=== PATIENT | male | born 1945 ===

== ENCOUNTER 2017-05-09 16:46 | Inpatient (IN) | payer OTHER ==
[2017-05-09] MEDS ORDERED: Sodium Chloride 0.9% 1,000 ML IV STA ×2 (17:14→19:03)
--- NOTE | 2017-05-09 17:56 | ED PDOC ---
Hyperglycemia/Hypoglycemia Time Seen by Provider: 05/09/17 17:03 Chief Complaint (Nursing): High Blood Sugar Chief Complaint (Provider): High Blood Sugar History Per: Patient History/Exam Limitations: no limitations Onset/Duration Of Symptoms: Days (x 1) Current Symptoms Are (Timing): Still Present : The patient does not have any of the infectious symptoms listed except for those marked. 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 Family members say that his glucose levels were greater than 500 at home. He took his usual dose of insulin today. Also complains of epigastric pain that started today. He is not complaining of thirst or frequent urination. Denies fever, chest pain, shortness of breath, nausea, vomiting, diarrhea, and any urinary symptoms. PMD: none provided Past Medical History Reviewed: Historical Data, Nursing Documentation, Vital Signs Vital Signs: Last Vital Signs Temp 98.0 F 05/09/17 16:52 Pulse 91 H 05/09/17 16:52 Resp 16 05/09/17 16:52 BP 146/65 05/09/17 16:52 Pulse Ox 99 05/09/17 16:52 - Medical History PMH: Diabetes - Surgical History Surgical History: No Surg Hx - Family History Family History: States: Unknown Family Hx - Social History Current smoker - smoking cessation education provided: No Alcohol: None Drugs: Denies - Home Medications Home Medications: Ambulatory Orders Medication Instructions Recorded Enalapril Maleate [Vasotec] 20 mg PO DAILY 05/09/17 Furosemide [Lasix] 40 mg PO DAILY 05/09/17 Insulin Human Isophane (NPH) 10 units SC PC 05/09/17 [Novolin N] Insulin Human Isophane (NPH) 15 units SC AC 05/09/17 [Novolin N] metFORMIN [glucOPHAGE] 500 mg PO DAILY 05/09/17 Aspirin [Aspirin Chewable] 81 mg PO DAILY chew 05/10/17 Atorvastatin [Lipitor] 40 mg PO DAILY tab 05/10/17 Carvedilol [Coreg] 6.25 mg PO BID tab 05/10/17 Clopidogrel [Plavix] 75 mg PO DAILY tab 05/10/17 Insulin Human NPH [Humulin N] 10 units SC BID vial 05/10/17 Ondansetron [Zofran Inj] 4 mg IVP Q6H PRN vial 05/10/17 Pantoprazole [Protonix EC Tab] 40 mg PO DAILY ect 05/10/17 - Allergies Allergies/Adverse Reactions: Allergies Allergy/AdvReac Type Severity Reaction Status Date / Time No Known Allergies Allergy Verified 05/10/17 03:56 Review of Systems ROS Statement: Except As Marked, All Systems Reviewed And Found Negative Constitutional: Positive for: Other (Elevated blood sugar) ENT: Negative for: Other (thirst) Cardiovascular: Negative for: Chest Pain Respiratory: Negative for: Shortness of Breath Gastrointestinal: Positive for: Abdominal Pain (epigastric). Negative for: Nausea, Vomiting, Diarrhea Genitourinary Male: Negative for: Dysuria, Frequency, Incontinence, Hematuria Physical Exam - Reviewed Nursing Documentation Reviewed: Yes Vital Signs Reviewed: Yes - Physical Exam Appears: Positive for: Non-toxic, No Acute Distress Head Exam: Positive for: ATRAUMATIC, NORMOCEPHALIC Skin: Positive for: Normal Color, Warm, Dry Eye Exam: Positive for: EOMI, Normal appearance, PERRL Neck: Positive for: Normal, Painless ROM, Supple Cardiovascular/Chest: Positive for: Regular Rate, Rhythm. Negative for: Murmur Respiratory: Positive for: Normal Breath Sounds. Negative for: Respiratory Distress Gastrointestinal/Abdominal: Positive for: Tenderness (mild epigastric). Negative for: Guarding, Rebound Back: Positive for: Normal Inspection Extremity: Positive for: Normal ROM. Negative for: Deformity Neurologic/Psych: Positive for: Alert, Oriented. Negative for: Motor/Sensory Deficits - Laboratory Results Result Diagrams: 05/09/17 18:08 05/09/17 18:08 - ECG O2 Sat by Pulse Oximetry: 99 (RA) Pulse Ox Interpretation: Normal - Physician Consult Information Time Consulting Physican Contacted: 19:10 Physician Contacted: Thanh Fernandez - Critical Care Total Time (In Min): 100 Medical Decision Making Medical Decision Making: Time: 17:10 Impression: 71 year old male with hyperglycemia and epigastric pain --Abdomen Limited US --VBG --EKG --CMP --Troponin I --Urine dip --CBC --PTT --Prothrombin Time --Lipase --Chest x-ray --Normal Saline IV 1,000 mls/hr --Urinalysis Abdomen US FINDINGS: Liver: No acute findings. Hepatopetal flow in the main portal vein. Gallbladder: Mild gallbladder wall thickening. No gallstones or gallbladder sludge. No pericholecystic fluid. No sonographic Tsang sign per the liquefaction plant operator's report. Common bile duct: No biliary ductal dilation. Pancreas: Obscured by bowel gas. Right kidney: No acute findings. Aorta: The proximal abdominal aorta is normal in caliber. The mid to distal abdominal aorta is obscured by overlying bowel gas. Inferior vena cava: The imaged IVC is normal in caliber. Free fluid: No free fluid is visualized in the imaged portion of the peritoneal cavity. IMPRESSION: 1. Mild gallbladder wall thickening which is a nonspecific finding. No gallstones or other evidence of acute cholecystitis. 2. No other evident acute abnormality. 19:[address] Fernandez, EKGs reviewed, ASA, Heparin bolus and drop, Labetalol 40 mg, admit to ICU. 19:36 Labetalol held secondary to systolic BP 90. 19:[address] Spring, Kayexylate 30 g, will consult. 20:00 Chest XR FINDINGS: Lungs: Increased prominence of the pulmonary interstitial markings throughout both lungs. No focal airspace consolidation. Pleural space: No pleural fluid collection. No pneumothorax. Heart: See below. Mediastinum: Normal cardiomediastinal silhouette. Mild atherosclerotic calcification of the aortic arch. Bones/joints: No acute findings. IMPRESSION: 1. Increased prominence of the pulmonary interstitial markings throughout both lungs is suggestive of diffuse interstitial fibrotic changes. Differential diagnosis also includes but is not limited to pulmonary edema versus an atypical or viral pneumonia. Recommend direct comparison to prior imaging studies if available to assess for interval change. 2. No other evident acute abnormality. 21:00 Pt reports resolution of chest pain. 21:15 EKG #[address] depression in V3. Dr. Fernandez called again, EKG reviewed. Lipitor, Tridil if continued chest pain and Plavix 75 mg daily. Scribe Attestation: Documented by Anita Raman and Brigido Michaels, acting as a scribe for Daxa Basurto MD. Provider Scribe Attestation: All medical record entries made by the Scribe were at my direction and personally dictated by me. I have reviewed the chart and agree that the record accurately reflects my personal performance of the history, physical exam, medical decision making, and the department course for this patient. I have also personally directed, reviewed, and agree with the discharge instructions and disposition. Disposition - Clinical Impression Clinical Impression: NSTEMI (non-ST elevated myocardial infarction) - Patient ED Disposition Is Patient to be Admitted: Yes - Disposition Disposition Time: 19:32 Condition: SERIOUS - Pt Status Changed To: Hospital Disposition Of: Inpatient - Admit Certification Admit to Inpatient:: After my assessment, the patient will require hospitalization for at least two midnights. This is because of the severity of symptoms shown, intensity of services needed, and/or the medical risk in this patient being treated as an outpatient. - POA Present On Arrival: Poor Glycemic Control
[2017-05-09 18:12] LABS: BASO # 0.1 K/uL (0.0-0.2); BASO % 0.9 % (0.0-2.0); EOS # 0.4 K/uL (0.0-0.7); HEMOGLOBIN 10.4 g/dL (12.0-18.0); LYMPH # 1.3 K/uL (1.0-4.3); LYMPH % 19.2 % (20.0-40.0); MEAN CELL VOLUME 88.9 fl (80.0-94.0); MEAN CORPUSCULAR HGB CONC 32.7 g/dL (33.0-37.0); MEAN PLATELET VOLUME 8.1 fl (7.2-11.7); MONO # 0.5 K/uL (0.0-0.8); MONO % 7.5 % (0.0-10.0); NEUT # 4.6 K/uL (1.8-7.0); NEUT % 66.4 % (50.0-75.0); RBC 3.58 Mil/uL (4.40-5.90); RED CELL DISTRIBUTION WIDTH 14.3 % (11.5-14.5)
[2017-05-09 18:17] LABS: VENOUS BLOOD GAS BASE EXCESS -1.9 mmol/L (0.0-2.0); VENOUS BLOOD GAS PCO2 46 mmHg (40-60); VENOUS BLOOD GAS PO2 32 mm/Hg (30-55); VENOUS BLOOD PH 7.33 (7.32-7.43)
[2017-05-09 18:42] LABS: PARTIAL THROMBOPLASTIN TIME 46.5 Seconds (25.6-37.1); PROTHROMBIN TIME 10.9 Seconds (9.8-13.1)
[2017-05-09 18:48] LABS: ALB/GLOB RATIO 0.9 (1.0-2.1); ALBUMIN 3.7 g/dL (3.5-5.0); CALCIUM 8.9 mg/dL (8.4-10.2)
[2017-05-09 18:59] LABS: TROPONIN I 0.488 ng/mL (0.00-0.120)
[2017-05-09] MEDS ORDERED: Insulin Regular 100 units/ml IV STA ×2 (19:00→20:49)
[2017-05-09] MEDS ORDERED: Insulin Regular 100 units/ml ONE (19:22)
[2017-05-09] MEDS ORDERED: Heparin 25,000units in D5W 25,000 UNITS/250 ML BAG IV SCH (19:30)
[2017-05-09] MEDS ORDERED: Labetalol 5 mg/ml Inj 20ML IVP ONE (19:30)
[2017-05-09] MEDS ORDERED: Enoxaparin 80 mg Syringe SC ONE (19:30)
[2017-05-09] MEDS ORDERED: Heparin25000 units/250ml 1/2NS 25,000 UNITS/250 ML BAG IV ONE (19:43)
[2017-05-09] MEDS ORDERED: Sod Polystyrene Sulf 15 gm/60 ml Susp PO STA (19:49)
[2017-05-09] MEDS ORDERED: Heparin25000 units/250ml 1/2NS 25,000 UNITS/250 ML BAG IV SCH (20:00)
--- NOTE | 2017-05-09 20:17 | CP.PCM.HP ---
History of Present Illness - History of Present Illness History of Present Illness: Chief Complaint: DIARRHEA HPI: 71M PMH hypertension, diabetes, presents with acute onset worsening moderate to severe diarrhea x5 episodes within two hours, associated with emesis. In ED EKG showed ST depressions lateral leads, Troponin 0.488, currently without any chest pain. Heparin drip initiated. He also developed O2 requirement, on nonrebreather saturating 93%, BP initially 146/65, now ranging from 98-104 systolic. Glucose 623 on admission, no acidosis. US Abd - mild GB wall thickening, no cholelithiasis or cholecystitis, CXR - possible diffuse intersitial fibrotic changes? BNP and repeat troponin currently pending. EKGs reviewed with ED physician as well as code heart physician, no code heart at this time. Pt also noted to have ulcers bilateral feet, podiatry consulted. ROS: Per HPI, all other systems reviewed negative by me PMH: HTN, DM PSH: denies FH: denies SH: denies tobacco, etoh, ivdu ALLERGIES: NKDA MEDICATIONS: reviewed and as bel vitals reviewed GENERAL APPEARANCE: appears weak, alert and cooperative HEENT: normocephalic, atraumatic PERRL, EOMI NECK: Neck supple, non-tender without lymphadenopathy, masses or thyromegaly. CARDIAC: Normal S1 and S2. No S3, S4 or murmurs. Rhythm is regular. LUNGS: Clear to auscultation and percussion without rales, rhonchi, wheezing or diminished breath sounds. ABDOMEN: Positive bowel sounds. Soft, nondistended, nontender. No guarding or rebound. No masses. BACK: Examination of the spine reveals no spinal deformity, symmetry of spinal muscles, EXTREMITIES: No significant deformity or joint abnormality. No edema. NEUROLOGICAL: Strength and sensation symmetric and intact throughout. Reflexes 2 + throughout. SKIN: Skin normal color, texture PSYCHIATRIC: The patient was oriented to person, place, and time. Normal affect. LABS: Most Recent Lab Values WBC 7.0 K/uL (4.8-10.8) 05/09/17 18:08 RBC 3.58 Mil/uL (4.40-5.90) L 05/09/17 18:08 Hgb 10.4 g/dL (12.0-18.0) L 05/09/17 18:08 Hct 31.8 % (35.0-51.0) L 05/09/17 18:08 MCV 88.9 fl (80.0-94.0) 05/09/17 18:08 MCH 29.0 pg (27.0-31.0) 05/09/17 18:08 MCHC 32.7 g/dL (33.0-37.0) L 05/09/17 18:08 RDW 14.3 % (11.5-14.5) 05/09/17 18:08 Plt Count 333 K/uL (130-400) 05/09/17 18:08 MPV 8.1 fl (7.2-11.7) 05/09/17 18:08 Neut % (Auto) 66.4 % (50.0-75.0) 05/09/17 18:08 Lymph % (Auto) 19.2 % (20.0-40.0) L 05/09/17 18:08 Dale % (Auto) 7.5 % (0.0-10.0) 05/09/17 18:08 Eos % (Auto) 6.0 % (0.0-4.0) H 05/09/17 18:08 Baso % (Auto) 0.9 % (0.0-2.0) 05/09/17 18:08 Neut # (Auto) 4.6 K/uL (1.8-7.0) 05/09/17 18:08 Lymph # (Auto) 1.3 K/uL (1.0-4.3) 05/09/17 18:08 Dale # (Auto) 0.5 K/uL (0.0-0.8) 05/09/17 18:08 Eos # (Auto) 0.4 K/uL (0.0-0.7) 05/09/17 18:08 Baso # (Auto) 0.1 K/uL (0.0-0.2) 05/09/17 18:08 PT 10.9 Seconds (9.8-13.1) 05/09/17 18:08 INR 1.0 (0.9-1.2) 05/09/17 18:08 APTT 46.5 Seconds (25.6-37.1) H 05/09/17 18:08 pO2 32 mm/Hg (30-55) 05/09/17 18:00 VBG pH 7.33 (7.32-7.43) 05/09/17 18:00 VBG pCO2 46 mmHg (40-60) 05/09/17 18:00 VBG HCO3 22.3 mmol/L 05/09/17 18:00 VBG O2 Sat (Calc) 69.9 % (40-65) H 05/09/17 18:00 VBG Base Excess -1.9 mmol/L (0.0-2.0) L 05/09/17 18:00 Sodium 129 mmol/l (132-148) L 05/09/17 18:08 Potassium 5.8 MMOL/L (3.6-5.0) H 05/09/17 18:08 Chloride 95 mmol/L (98-107) L 05/09/17 18:08 Carbon Dioxide 24 mmol/L (22-30) 05/09/17 18:08 Anion Gap 16 (10-20) 05/09/17 18:08 BUN 60 mg/dl (9-20) H 05/09/17 18:08 Creatinine 3.4 mg/dl (0.8-1.5) H 05/09/17 18:08 Est GFR ( Amer) 22 05/09/17 18:08 Est GFR (Non-Af Amer) 18 05/09/17 18:08 POC Glucose (mg/dL) 412 mg/dL (65-110) H* 05/09/17 20:21 Random Glucose 623 mg/dL (75-110) H* 05/09/17 18:08 Calcium 8.9 mg/dL (8.4-10.2) 05/09/17 18:08 Total Bilirubin 0.3 mg/dl (0.2-1.3) 05/09/17 18:08 AST 32 U/L (17-59) 05/09/17 18:08 ALT 19 U/L (21-72) L 05/09/17 18:08 Alkaline Phosphatase 110 U/L (38-126) 05/09/17 18:08 Troponin I 0.4880 ng/mL (0.00-0.120) H* 05/09/17 18:08 Total Protein 8.0 G/DL (6.3-8.2) 05/09/17 18:08 Albumin 3.7 g/dL (3.5-5.0) 05/09/17 18:08 Globulin 4.3 gm/dL (2.2-3.9) H 05/09/17 18:08 Albumin/Globulin Ratio 0.9 (1.0-2.1) L 05/09/17 18:08 Lipase 182 U/L (23-300) 05/09/17 18:53 IMAGING STUDIES Abdomen US FINDINGS: Liver: No acute findings. Hepatopetal flow in the main portal vein. Gallbladder: Mild gallbladder wall thickening. No gallstones or gallbladder sludge. No pericholecystic fluid. No sonographic Tsang sign per the life sciences instructor's report. Common bile duct: No biliary ductal dilation. Pancreas: Obscured by bowel gas. Right kidney: No acute findings. Aorta: The proximal abdominal aorta is normal in caliber. The mid to distal abdominal aorta is obscured by overlying bowel gas. Inferior vena cava: The imaged IVC is normal in caliber. Free fluid: No free fluid is visualized in the imaged portion of the peritoneal cavity. IMPRESSION: 1. Mild gallbladder wall thickening which is a nonspecific finding. No gallstones or other evidence of acute cholecystitis. 2. No other evident acute abnormality. Chest XR FINDINGS: Lungs: Increased prominence of the pulmonary interstitial markings throughout both lungs. No focal airspace consolidation. Pleural space: No pleural fluid collection. No pneumothorax. Heart: See below. Mediastinum: Normal cardiomediastinal silhouette. Mild atherosclerotic calcification of the aortic arch. Bones/joints: No acute findings. IMPRESSION: 1. Increased prominence of the pulmonary interstitial markings throughout both lungs is suggestive of diffuse interstitial fibrotic changes. Differential diagnosis also includes but is not limited to pulmonary edema versus an atypical or viral pneumonia. Recommend direct comparison to prior imaging studies if available to assess for interval change. 2. No other evident acute abnormality. ASSESSMENT AND PLAN 71M PMH hypertension, diabetes, presents with acute onset worsening moderate to severe diarrhea x5 episodes within two hours, associated with emesis. In ED EKG showed ST depressions lateral leads, Troponin 0.488, currently without any chest pain. Heparin drip initiated. He also developed O2 requirement, on nonrebreather saturating 93%, BP initially 146/65, now ranging from 98-104 systolic. Glucose 623 on admission, no acidosis. US Abd - mild GB wall thickening, no cholelithiasis or cholecystitis, CXR - possible diffuse intersitial fibrotic changes? BNP and repeat troponin currently pending. EKGs reviewed with ED physician as well as code heart physician, no code heart at this time. Pt also noted to have ulcers bilateral feet, podiatry consulted. NSTEMI Cardiology Dr. Fernandez ST depressions lateral leads, troponin 0.488 trend cardiac enzymes and EKG ECHO in AM, TSH, Lipid Panel in AM +Heparin Drip continue ASA, Plavix, Statin, Coreg with parameters, Lisinopril with parameters continue to monitor closely ICU DM currently uncontrolled, initial BG 600s continue NPH 10 units BID continue sliding scale accuchecks diabetic heart healthy diet DIABETIC FOOT ULCERS Podiatry consult appreciated Acute on? Chronic? Renal failure Dr. Spring nephrology consulted in ER receiving NS bolus in ED HYPERKALEMIA patient was given Kayexelate in ED also given SQ insulin x2 for elevated BG will recheck in AM HYPERTENSION currently hypotensive, monitoring in ICU DVT ppx on Heparin Drip Present on Admission - Present on Admission Any Indicators Present on Admission: No Past Patient History - Past Social History Alcohol: None Drugs: Denies - CARDIAC Hx Cardiac Disorders: Yes Hx Hypertension: Yes - ENDOCRINE/METABOLIC Hx Endocrine Disorders: Yes Hx Diabetes Mellitus Type 2: Yes - PSYCHIATRIC Hx Substance Use: No Meds Allergies/Adverse Reactions: Allergies Allergy/AdvReac Type Severity Reaction Status Date / Time No Known Allergies Allergy Verified 05/09/17 16:52 Results - Vital Signs Recent Vital Signs: Last Vital Signs Temp 98.0 F 05/09/17 16:52 Pulse 81 05/09/17 18:03 Resp 16 05/09/17 18:03 BP 90/57 L 05/09/17 19:41 Pulse Ox 99 05/09/17 20:06 - Labs Result Diagrams: 05/09/17 18:08 05/09/17 18:08 Labs: Laboratory Results - last 24 hr 05/09/17 05/09/17 05/09/17 18:00 18:08 18:08 WBC 7.0 RBC 3.58 L Hgb 10.4 L Hct 31.8 L MCV 88.9 MCH 29.0 MCHC 32.7 L RDW 14.3 Plt Count 333 MPV 8.1 Neut % (Auto) 66.4 Lymph % (Auto) 19.2 L Dale % (Auto) 7.5 Eos % (Auto) 6.0 H Baso % (Auto) 0.9 Neut # (Auto) 4.6 Lymph # (Auto) 1.3 Dale # (Auto) 0.5 Eos # (Auto) 0.4 Baso # (Auto) 0.1 PT INR APTT pO2 32 VBG pH 7.33 VBG pCO2 46 VBG HCO3 22.3 VBG O2 Sat (Calc) 69.9 H VBG Base Excess -1.9 L Sodium 129 L Potassium 5.8 H Chloride 95 L Carbon Dioxide 24 Anion Gap 16 BUN 60 H Creatinine 3.4 H Est GFR ( Amer) 22 Est GFR (Non-Af Amer) 18 Random Glucose 623 H* Calcium 8.9 Total Bilirubin 0.3 AST 32 ALT 19 L Alkaline Phosphatase 110 Troponin I 0.4880 H* Total Protein 8.0 Albumin 3.7 Globulin 4.3 H Albumin/Globulin Ratio 0.9 L Lipase 05/09/17 05/09/17 18:08 18:53 WBC RBC Hgb Hct MCV MCH MCHC RDW Plt Count MPV Neut % (Auto) Lymph % (Auto) Dale % (Auto) Eos % (Auto) Baso % (Auto) Neut # (Auto) Lymph # (Auto) Dale # (Auto) Eos # (Auto) Baso # (Auto) PT 10.9 INR 1.0 APTT 46.5 H pO2 VBG pH VBG pCO2 VBG HCO3 VBG O2 Sat (Calc) VBG Base Excess Sodium Potassium Chloride Carbon Dioxide Anion Gap BUN Creatinine Est GFR ( Amer) Est GFR (Non-Af Amer) Random Glucose Calcium Total Bilirubin AST ALT Alkaline Phosphatase Troponin I Total Protein Albumin Globulin Albumin/Globulin Ratio Lipase 182
[2017-05-09] MEDS ORDERED: Insulin NPH Human 100 Units/ml Inj SC SCH (20:30)
[2017-05-09] MEDS ORDERED: Sod Polystyrene Sulf 15 gm/60 ml Susp ONE (20:48)
[2017-05-09] MEDS ORDERED: Insulin Lispro (humaLOG) 100 Units/ml Inj SC SCH (22:00)
[2017-05-09 22:04] LABS: VENOUS BLOOD GAS BASE EXCESS -1.6 mmol/L (0.0-2.0); VENOUS BLOOD GAS PCO2 52 mmHg (40-60); VENOUS BLOOD GAS PO2 22 mm/Hg (30-55)
[2017-05-10] MEDS: Azithromycin 500 MG in Sodium Chloride 0.9% 250 ML IVPB SCH ×2 (00:43→01:00)
[2017-05-10 01:03] VITALS: TEMP 97.4
[2017-05-10] MEDS ORDERED: Sodium Chloride 0.9% 1,000 ML IV SCH (01:30)
[2017-05-10] MEDS ORDERED: HYDROmorphone 0.5 mg/0.5 ml ISec IVP STA (02:30)
[2017-05-10] MEDS ORDERED: HYDROmorphone 0.5 mg/0.5 ml ISec ONE (02:36)
[2017-05-10 04:20] LABS: URINE BILIRUBIN NEGATIVE (NEGATIVE); URINE BLOOD NEGATIVE (NEGATIVE); URINE CLARITY CLEAR (Clear); URINE COLOR YELLOW (YELLOW); URINE GLUCOSE (UA) >=500 mg/dL (Normal); URINE LEUKOCYTE ESTERASE NEG Leu/uL (Negative); URINE NITRATE NEGATIVE (NEGATIVE); URINE PROTEIN NEGATIVE (NEGATIVE); URINE UROBILINOGEN 0.2-1.0 mg/dL (0.2-1.0)
[2017-05-10 04:29] VITALS: BP 98/62; PULSE 65; RESP 20
--- NOTE | 2017-05-10 05:57 | PCM.RRT ---
Plan - Assessment of Findings&Treatment Plan Patient is a transfer from [facility] who presented for cardiac cath with Dr. Yoon. At 5:42 FINANCIAL PLANNING ASSISTANT was called and patient subsequently became pulseless. Chest compressions were started, atropine was pushed x1. Anesthesia and code team were present on site. Patient was intubated. He is being prepared for transfer for emergent open heart surgery. [facility] is being contacted for acceptance.
--- NOTE | 2017-05-10 06:14 | CP.PCM.DIS ---
Provider - Provider Date of Admission: 05/09/17 19:51 Attending physician: Piedad Flaherty DO Time Spent in preparation of Discharge (in minutes): 60 Diagnosis - Discharge Diagnosis (1) NSTEMI (non-ST elevated myocardial infarction) Status: Acute Hospital Course - Lab Results Lab Results: Most Recent Lab Values WBC 7.0 K/uL (4.8-10.8) 05/09/17 18:08 RBC 3.58 Mil/uL (4.40-5.90) L 05/09/17 18:08 Hgb 10.4 g/dL (12.0-18.0) L 05/09/17 18:08 Hct 31.8 % (35.0-51.0) L 05/09/17 18:08 MCV 88.9 fl (80.0-94.0) 05/09/17 18:08 MCH 29.0 pg (27.0-31.0) 05/09/17 18:08 MCHC 32.7 g/dL (33.0-37.0) L 05/09/17 18:08 RDW 14.3 % (11.5-14.5) 05/09/17 18:08 Plt Count 333 K/uL (130-400) 05/09/17 18:08 MPV 8.1 fl (7.2-11.7) 05/09/17 18:08 Neut % (Auto) 66.4 % (50.0-75.0) 05/09/17 18:08 Lymph % (Auto) 19.2 % (20.0-40.0) L 05/09/17 18:08 Donley % (Auto) 7.5 % (0.0-10.0) 05/09/17 18:08 Eos % (Auto) 6.0 % (0.0-4.0) H 05/09/17 18:08 Baso % (Auto) 0.9 % (0.0-2.0) 05/09/17 18:08 Neut # (Auto) 4.6 K/uL (1.8-7.0) 05/09/17 18:08 Lymph # (Auto) 1.3 K/uL (1.0-4.3) 05/09/17 18:08 Donley # (Auto) 0.5 K/uL (0.0-0.8) 05/09/17 18:08 Eos # (Auto) 0.4 K/uL (0.0-0.7) 05/09/17 18:08 Baso # (Auto) 0.1 K/uL (0.0-0.2) 05/09/17 18:08 PT 10.9 Seconds (9.8-13.1) 05/09/17 18:08 INR 1.0 (0.9-1.2) 05/09/17 18:08 APTT 46.5 Seconds (25.6-37.1) H 05/09/17 18:08 pO2 22 mm/Hg (30-55) L 05/09/17 22:00 VBG pH 7.30 (7.32-7.43) L 05/09/17 22:00 VBG pCO2 52 mmHg (40-60) 05/09/17 22:00 VBG HCO3 21.9 mmol/L 05/09/17 22:00 VBG Total CO2 27.2 mmol/L (22-28) 05/09/17 22:00 VBG O2 Sat (Calc) 43.6 % (40-65) 05/09/17 22:00 VBG Base Excess -1.6 mmol/L (0.0-2.0) L 05/09/17 22:00 VBG Potassium 4.9 mmol/L (3.6-5.2) 05/09/17 22:00 Sodium 135.0 mmol/L (132-148) 05/09/17 22:00 Chloride 103.0 mmol/L (98-107) 05/09/17 22:00 Glucose 262 mg/dL (75-110) H 05/09/17 22:00 Lactate 2.4 mmol/L (0.7-2.1) H 05/09/17 22:00 FiO2 21.0 % 05/09/17 22:00 Sodium 129 mmol/l (132-148) L 05/09/17 18:08 Potassium 5.8 MMOL/L (3.6-5.0) H 05/09/17 18:08 Chloride 95 mmol/L (98-107) L 05/09/17 18:08 Carbon Dioxide 24 mmol/L (22-30) 05/09/17 18:08 Anion Gap 16 (10-20) 05/09/17 18:08 BUN 60 mg/dl (9-20) H 05/09/17 18:08 Creatinine 3.4 mg/dl (0.8-1.5) H 05/09/17 18:08 Est GFR ( Amer) 22 05/09/17 18:08 Est GFR (Non-Af Amer) 18 05/09/17 18:08 POC Glucose (mg/dL) 162 mg/dL (65-110) H 05/10/17 00:48 Random Glucose 623 mg/dL (75-110) H* 05/09/17 18:08 Calcium 8.9 mg/dL (8.4-10.2) 05/09/17 18:08 Total Bilirubin 0.3 mg/dl (0.2-1.3) 05/09/17 18:08 AST 32 U/L (17-59) 05/09/17 18:08 ALT 19 U/L (21-72) L 05/09/17 18:08 Alkaline Phosphatase 110 U/L (38-126) 05/09/17 18:08 Troponin I 24.2000 ng/mL (0.00-0.120) H* 05/09/17 22:24 NT-Pro-B Natriuret Pep 1170 pg/ml (0-900) H 05/09/17 21:50 Total Protein 8.0 G/DL (6.3-8.2) 05/09/17 18:08 Albumin 3.7 g/dL (3.5-5.0) 05/09/17 18:08 Globulin 4.3 gm/dL (2.2-3.9) H 05/09/17 18:08 Albumin/Globulin Ratio 0.9 (1.0-2.1) L 05/09/17 18:08 Lipase 182 U/L (23-300) 05/09/17 18:53 Venous Blood Potassium 4.9 mmol/L (3.6-5.2) 05/09/17 22:00 Urine Color Yellow (YELLOW) 05/10/17 04:11 Urine Clarity Clear (Clear) 05/10/17 04:11 Urine pH 5.0 (5.0-8.0) 05/10/17 04:11 Ur Specific Chloe 1.010 (1.003-1.030) 05/10/17 04:11 Urine Protein Negative mg/dL (NEGATIVE) 05/10/17 04:11 Urine Glucose (UA) >=500 mg/dL (Normal) 05/10/17 04:11 Urine Ketones Negative mg/dL (NEGATIVE) 05/10/17 04:11 Urine Blood Negative (NEGATIVE) 05/10/17 04:11 Urine Nitrate Negative (NEGATIVE) 05/10/17 04:11 Urine Bilirubin Negative (NEGATIVE) 05/10/17 04:11 Urine Urobilinogen 0.2-1.0 mg/dL (0.2-1.0) 05/10/17 04:11 Ur Leukocyte Esterase Neg Xiomara/uL (Negative) 05/10/17 04:11 Urine RBC (Auto) 1 /hpf (0-3) 05/10/17 04:11 Urine Microscopic WBC < 1 /hpf (0-5) 05/10/17 04:11 - Hospital Course Hospital Course: 71M PMH hypertension, diabetes, presents with acute onset worsening moderate to severe diarrhea x5 episodes within two hours, associated with emesis. In ED EKG showed ST depressions lateral leads, Troponin 0.488, currently without any chest pain. Heparin drip initiated. He also developed O2 requirement, on nonrebreather saturating 93%, BP initially 146/65, now ranging from 98-104 systolic. Glucose 623 on admission, no acidosis. US Abd - mild GB wall thickening, no cholelithiasis or cholecystitis, CXR - possible diffuse intersitial fibrotic changes? BNP and repeat troponin currently pending. EKGs reviewed with ED physician as well as code heart physician, no code heart at this time. Pt also noted to have ulcers bilateral feet, podiatry consulted. In ICU patient repeat Tn appx 24, became hypotensive, awake alert oriented, central line placed and Levophed initiated. Pt + crackes, maintained 100% on nonrebreather, Lasix given. CODE HEART initiated and patient transferred to [facility] for emergent cardiac cath. HD stable for transfer. Discharge Exam - Head Exam Head Exam: ATRAUMATIC, NORMOCEPHALIC - Eye Exam Eye Exam: EOMI, Normal appearance, PERRL Pupil Exam: NORMAL ACCOMODATION - ENT Exam ENT Exam: Normal Oropharynx - Neck Exam Neck exam: Full Rom, Normal Inspection - Respiratory Exam Respiratory Exam: Rales, NORMAL BREATHING PATTERN - Cardiovascular Exam Cardiovascular Exam: RRR, +S1, +S2 - GI/Abdominal Exam GI & Abdominal Exam: Normal Bowel Sounds, Soft. absent: Mass, Organomegaly, Tenderness - Extremities Exam Extremities exam: normal capillary refill, pedal pulses present - Back Exam Back exam: absent: CVA tenderness (L), CVA tenderness (R) - Neurological Exam Neurological exam: Alert, Oriented x3 - Psychiatric Exam Psychiatric exam: Normal Affect, Normal Mood - Skin Skin Exam: Diaphoretic, Warm Discharge Plan - Follow Up Plan Condition: SERIOUS Disposition: Trans to Other Acute Care Hosp
--- NOTE | 2017-05-10 06:25 | PCM.PROC ---
Procedures Attestation:: I certify that I have explained the specified Operation(s) or Procedure(s), risks, benefits and reasonable alternatives to the Patient and/or other person responsible. The opportunity was given to ask questions and all questions answered - Central Line Placement Left Internal Jugular Triple Lumen Catheter Aseptic technique was employed throughout the procedure: Hand Hygiene done prior to procedure, Full sterile barriers (mask, hair cover, sterile gown, sterile gloves), Full body sterile drape, Chloraprep Antiseptic: 30 second prep for IJ or SC sites CVP Time Out Performed: Yes Pt. Placed on Pulse Ox Monitor: Yes Central Line Prep: Chlorhexidine-Alcohol Combination Local Anesthesia Used: Lidocaine 1% Ultrasound Used for Placement: Yes Central Line Lumen Inserted: triple Central Line Length: 30 cm Post Procedure: Sutured in Place, Good Blood Return, All Ports Aspirated, Flushed, Capped, Sterile Dressing Applied Secured by: Suture Post procedure dressing: Chlorhexidine disc (Biopatch) Post Procedure X-Ray: No Patient Tolerated Procedure: Well, No Complications Immediate Complications: None Additional Comments: pt did not get cxr as code heart was initiated and pt sent for cardiac catheterization
[2017-05-10] MEDS ORDERED: Insulin NPH Human 100 Units/ml Inj SC SCH ×2 (07:30→09:00)
[2017-05-10] MEDS ORDERED: Pantoprazole 40 mg EC Tab PO SCH (09:00)
--- NOTE | 2017-05-10 12:48 | RAD ---
HISTORY: Hyperglycemia COMPARISON: No prior. TECHNIQUE: Chest PA and lateral FINDINGS: LUNGS: Increased prominence of the bilateral interstitial markings. No focal consolidation. PLEURA: No significant pleural effusion identified. No pneumothorax apparent. CARDIOVASCULAR: Atherosclerotic aortic calcifications. Cardiomediastinal silhouette within normal limits. OSSEOUS STRUCTURES: Degenerative changes. VISUALIZED UPPER ABDOMEN: Normal. OTHER FINDINGS: None. IMPRESSION: Increased prominence of the bilateral interstitial markings. No focal consolidation or pleural effusion.
--- NOTE | 2017-05-10 13:59 | US ---
HISTORY: Epigastric pain COMPARISON: None available TECHNIQUE: Sonographic evaluation of the right upper quadrant of the abdomen. FINDINGS: LIVER: Measures 11.1 cm in length and appears unremarkable. No focal hepatic mass identified. The main portal vein appears patent with normal directional flow. No intrahepatic bile duct dilatation. GALLBLADDER: No gallstones. Gallbladder wall thickness measures approximately 3 mm, top-normal. No pericholecystic edema. Negative sonographic Tsang's sign as assessed by the area forester. COMMON BILE DUCT: Measures 3 mm. PANCREAS: Not well-visualized. RIGHT KIDNEY: Measures 10.7 x 4.7 x 4.5 cm. No obstructing calculus or hydronephrosis identified. AORTA: Limited visualization appears grossly unremarkable. IVC: Limited visualization appears grossly unremarkable. OTHER FINDINGS: None . IMPRESSION: No acute findings identified. Preliminary impression was provided by virtual radiologic.
--- NOTE | 2017-05-11 09:45 | CARD ---
APPROVED REPORT EKG Measurement Heart [id number] [place] [id number] <Conclusion> Sinus rhythm with 1st degree AV block Marked ST abnormality, possible anterolateral subendocardial injury Intraventricular Conduction delay Abnormal ECG
--- NOTE | 2017-05-12 11:32 | CARD ---
APPROVED REPORT EKG Measurement Heart [id number] [place] [id number] <Conclusion> Sinus rhythm with 1st degree AV block with occasional premature ventricular complexes Nonspecific intraventricular conduction delay ST & T wave abnormality, consider lateral ischemia Abnormal ECG -- APPROVED REPORT EKG Measurement Heart [id number] [place] [id number] <Conclusion> Sinus rhythm with 1st degree AV block with occasional premature ventricular complexes LBBB type intraventricular conduction delay ST & T wave abnormality, due to IVCD Abnormal ECG
[2017-05-15 09:56] VITALS: O2SAT 99
== END 2017-05-10 03:20 | disposition short-term general hospital (02) | DRG 121 ==
LOC: H.ER 16:46 → H.ERHOLD 19:51 → H.ICU/CCU 22:15
PROVIDERS: ADMIT Student in an Organized Health Care Education/Training Program; ATTEND Student in an Organized Health Care Education/Training Program
PROC: 3E033XZ Introduction of Vasopressor into Peripheral Vein, Percutaneous Approach (ICD-10-PCS; principal; 2017-05-10)
PROC: 05HN33Z Insertion of Infusion Device into Left Internal Jugular Vein, Percutaneous Approach (ICD-10-PCS; 2017-05-10)
PROC: B544ZZA Ultrasonography of Left Jugular Veins, Guidance (ICD-10-PCS; 2017-05-10)
DX: I21.4 Non-ST elevation (NSTEMI) myocardial infarction (principal); I95.9 Hypotension, unspecified; E11.621 Type 2 diabetes mellitus with foot ulcer; E11.65 Type 2 diabetes mellitus with hyperglycemia; E87.5 Hyperkalemia; N19 Unspecified kidney failure; L97.509 Non-pressure chronic ulcer of other part of unspecified foot with unspecified severity; R09.02 Hypoxemia; I10 Essential (primary) hypertension; R19.7 Diarrhea, unspecified; Z79.4 Long term (current) use of insulin; Z79.82 Long term (current) use of aspirin; Z79.899 Other long term (current) drug therapy